=== PATIENT | female | born 1950 | race Caucasian/White ===

== ENCOUNTER → 2017-01-24 | Outpatient (RCR) | payer MEDICARE, MEDICAID ==
--- OUTSIDE RECORDS SUMMARY | 2016-10-26 10:00 | XMS REPORT | Continuity of Care Document ---
Author Author [facility] Organization [facility] Address Unknown Phone Unavailable Care Team Providers Care Clasp Machine Operator Name Role Phone Donna Tafoya PCP [phone] Source Comments Some departments are not documenting in the electronic medical record. If you do not see the information that you expected, contact Release of Information in the Health Information Management department at [phone] for further assistance in locating additional records.[facility] Active Allergies and Adverse Reactions Allergen Noted Date Severity Reactions Comments Benadryl Allergy 10/26/2011 Medium RASH, SEE COMMENTS Patient states benadryl Decongestant gives her a bloody nose Celebrex 10/19/2011 High SEE COMMENTS Passing blood in stool Lyrica 10/19/2011 Medium HEADACHE, NAUSEA AND drowsiness VOMITING, SEE COMMENTS Mobic 10/19/2011 Medium HEADACHE, HIVES, NAUSEA AND VOMITING Novocain 11/14/2011 NAUSEA AND VOMITING Sulfa (Sulfonamide 10/19/2011 Medium HIVES, NAUSEA AND Antibiotics) VOMITING Current Medications Prescription Sig. Disp. Refills Start End Date Status Date metoprolol XL (TOPROL XL) Take 100 mg by mouth Active 100 mg tablet daily. ascorbic acid (VITAMIN-C) Take 500 mg by mouth at Active 500 mg tablet bedtime daily. rivaroxaban (XARELTO) 20 Take 20 mg by mouth daily Active mg tab tablet with dinner. Calcium Citrate-Vitamin Take 1 Tab by mouth twice Active D3 (CITRACAL REGULAR) 250 daily. mg calcium- 200 unit tab vitamins, multiple tablet Take 1 Tab by mouth Active daily. ondansetron (ZOFRAN) 8 mg Take 8 mg by mouth every Active tablet 8 hours as needed for Nausea. furosemide (LASIX) 20 mg Take 1 Tab by mouth 30 Tab 5 05/22/20 Active tablet daily. 16 sodium chloride (SEA Apply 1-2 Sprays to each 12 05/22/20 Active MIST) 0.65 % nasal spray nostril as directed as 16 Needed. acetaminophen (TYLENOL) Take 2 Tabs by mouth 30 Tab 1 05/22/20 Active 325 mg tablet every 4 hours as needed 16 for Pain. Take temperature prior to taking and if temp is elevated, you need to call the BMT clinic first. pentamidine (NEBUPENT) Inhale 6 mL by mouth 0 05/22/20 Active 300 mg/6 mL nebulizer every 28 days. To be 16 solution administered in clinic Magnesium 250 mg tab Take 1 Tab by mouth twice 05/22/20 Active daily. Hold for loose 16 stools potassium chloride SR Take one tablet by mouth 30 Tab 1 05/22/20 Active (K-DUR) 20 mEq tablet daily with Lasix. 16 dapsone 100 mg tablet Take 1 Tab by mouth 90 Tab 3 07/01/20 Active daily. 16 acyclovir (ZOVIRAX) 800 Take 1 Tab by mouth twice 60 Tab 5 07/01/20 Active mg tablet daily. 16 Active Problems Problem Noted Date CHF (congestive heart failure) ([facility]) 05/22/2016 Hypomagnesemia 05/21/2016 Nocturnal leg cramps 05/21/2016 Hypokalemia 05/12/2016 Pancytopenia due to chemotherapy ([facility]) 05/12/2016 H/O stem cell transplant ([facility]) 05/09/2016 Overview: Transplant Information: Date of Transplant: 05/09/16 Preparative Regimen: BEAC Reduced or fully ablative: Full Disease: AITL Disease Status at Transplant: Rel1 sen Cytogenetic/FISH at DIAGNOSIS: none CMV: POS Cell Source: Peripheral, autologous, cryopreserved Consents/Studies: 8322, blood/chemo, storage, autologous, apheresis Coordinator: FRANCY WAGNER RN Nausea 05/09/2016 Abnormal echocardiogram 05/02/2016 Cardiomyopathy (HCC) 04/07/2016 CAD (coronary artery disease) 04/07/2016 Lymphedema of lower extremity 01/17/2014 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 CT scans showed diffuse LN enlargement, but the lagest LN described was 2.2 in diameter. 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 T-cell receptor rearrangement study was negative for clonal proliferation with even though does not fully exclude the diagnosis, it does not fully support i either especially given the atypic presentation. Further testing in needed. The patient has normal hematologic parameters, organ functions and is free of B symptoms, otherwise. Workup showed negative Hepatitis and HIV screen, negative HHV1, L ast Assessment & Plan: Acute parotitis 10/26/2011 Hyponatremia 10/19/2011 Dizziness 10/19/2011 DVT, lower extremity (HCC) 10/19/2011 Overview: The patient suffered bilateral unprovoked DVTs in bilateral LE. This is in the context of her recent diagnosis of lymphoma. penitentiary anticoagulation is prudent . Last Assessment & Plan: Continue coumadin therapy for a target INR of 2-3. Most Recent Encounters Date Type Specialty Providers Description 10/18/2016 Telephone Oncology Jenny Torres BMT Follow-up - 180 day LTFU 08/23/2016 Orders Only Cardiology Steph Rdz RN 08/11/2016 Telephone Oncology Jenny Be BMT Follow-up - 100 day Social History Tobacco Use Types Packs/Day Years Used Date Former Smoker Cigarettes 0.25 10 Quit: 02/02/2016 Smokeless Tobacco: Never Used Tobacco Cessation: Counseling Given: Yes Comments: pt smokes 1 cigarette/ daily Alcohol Use Drinks/Week oz/Week Comments No Last Filed Vital Signs Vital Sign Reading Time Taken Blood Pressure 124/93 07/01/2016 1:37 PM CDT Pulse 77 07/01/2016 1:37 PM CDT Temperature 36.8 C (98.3 F) 07/01/2016 1:37 PM CDT Respiratory Rate 16 07/01/2016 1:37 PM CDT Height 1.702 m (5' 7.01") 07/01/2016 1:37 PM CDT Weight 71 kg (156 lb 8.4 oz) 07/01/2016 1:37 PM CDT Body Mass Index 24.51 07/01/2016 1:37 PM CDT Oxygen Saturation 94% 07/01/2016 1:37 PM CDT Plan of Care Health Maintenance Due Date Last Done Comments Physical (Comprehensive) 1957 Exam Pertussis Vaccine 1961 Tetanus Vaccine 1967 Colorectal Cancer 2000 Screening Shingles Vaccine 2010 Osteoporosis Screening 2015 Prevnar/Pneumovax (#1) 2015 Influenza Vaccine 07/28/2016 Breast Cancer Screening 07/28/2017 07/28/2015 Hepatitis C Screening Completed 10/24/2011, 10/21/2011, 10/21/2011 Results from Last 3 Months Not on file
[2016-10-26 10:05] LABS: BASOPHILS % (AUTO) 1 % (0-10); EOSINOPHILS # (AUTO) 0.3 10^3/uL (0.0-0.3); EOSINOPHILS % (AUTO) 5 % (0-10); LYMPHOCYTES # (AUTO) 1.3 X 10^3 (1.0-4.0); LYMPHOCYTES % (AUTO) 23 % (12-44); MEAN CORPUSCULAR HEMOGLOBIN 32 PG (25-34); MEAN CORPUSCULAR HGB CONC 33 G/DL (32-36); MEAN CORPUSCULAR VOLUME 97 FL (80-99); MONOCYTES # (AUTO) 0.7 X 10^3 (0.0-1.0); MONOCYTES % (AUTO) 13 % (0-12); NEUTROPHILS # (AUTO) 3.3 X 10^3 (1.8-7.8); NEUTROPHILS % (AUTO) 59 % (42-75); PLATELET COUNT 350 10^3/uL (130-400); RED BLOOD COUNT 3.58 10^6/uL (4.35-5.85); RED CELL DISTRIBUTION WIDTH 13.7 % (10.0-14.5); WHITE BLOOD COUNT 5.6 10^3/uL (4.3-11.0)
[2016-10-26 10:48] LABS: ERYTHROCYTE SEDIMENTATION RATE 90 MM/HR (0-30)
[2016-10-26 10:55] LABS: ALANINE AMINOTRANSFERASE 6 U/L (0-55); ANION GAP 10 MMOL/L (5-14); ASPARTATE AMINO TRANSFERASE 19 U/L (5-34); BILIRUBIN,TOTAL 0.4 MG/DL (0.1-1.0); BLOOD UREA NITROGEN 15 MG/DL (7-18); BUN/CREATININE RATIO 18; CALCIUM 9.6 MG/DL (8.5-10.1); CARBON DIOXIDE 21 MMOL/L (21-32); CHLORIDE 104 MMOL/L (98-107); CREATININE SERUM 0.83 MG/DL (0.60-1.30); GFR ESTIMATED > 60; GLUCOSE 104 MG/DL (70-105); POTASSIUM 4.5 MMOL/L (3.6-5.0); SODIUM 135 MMOL/L (135-145); TOTAL PROTEIN 7.7 G/DL (6.4-8.2)
[2017-01-19 11:03] LABS: BASOPHILS % (AUTO) 1 % (0-10); EOSINOPHILS # (AUTO) 0.2 10^3/uL (0.0-0.3); EOSINOPHILS % (AUTO) 4 % (0-10); LYMPHOCYTES # (AUTO) 1.4 X 10^3 (1.0-4.0); LYMPHOCYTES % (AUTO) 28 % (12-44); MEAN CORPUSCULAR HEMOGLOBIN 32 PG (25-34); MEAN CORPUSCULAR HGB CONC 34 G/DL (32-36); MEAN CORPUSCULAR VOLUME 94 FL (80-99); MEAN PLATELET VOLUME 8.7 FL (7.4-10.4); MONOCYTES # (AUTO) 0.4 X 10^3 (0.0-1.0); MONOCYTES % (AUTO) 9 % (0-12); NEUTROPHILS # (AUTO) 2.8 X 10^3 (1.8-7.8); NEUTROPHILS % (AUTO) 59 % (42-75); PLATELET COUNT 282 10^3/uL (130-400); RED BLOOD COUNT 4.25 10^6/uL (4.35-5.85); RED CELL DISTRIBUTION WIDTH 14.6 % (10.0-14.5); WHITE BLOOD COUNT 4.8 10^3/uL (4.3-11.0)
[2017-01-19 11:08] LABS: PEP REPORT SEE PATH REPORT
[2017-01-19 11:31] LABS: ALANINE AMINOTRANSFERASE 9 U/L (0-55); ALBUMIN 3.8 G/DL (3.2-4.5); ANION GAP 9 MMOL/L (5-14); ASPARTATE AMINO TRANSFERASE 22 U/L (5-34); BILIRUBIN,TOTAL 0.5 MG/DL (0.1-1.0); BLOOD UREA NITROGEN 11 MG/DL (7-18); BUN/CREATININE RATIO 13; CALCIUM 9.6 MG/DL (8.5-10.1); CARBON DIOXIDE 24 MMOL/L (21-32); CHLORIDE 103 MMOL/L (98-107); CREATININE SERUM 0.83 MG/DL (0.60-1.30); GFR ESTIMATED > 60; GLUCOSE 95 MG/DL (70-105); POTASSIUM 4.2 MMOL/L (3.6-5.0); SODIUM 136 MMOL/L (135-145); TOTAL PROTEIN 7.8 G/DL (6.4-8.2)
[2017-01-19 11:44] LABS: ERYTHROCYTE SEDIMENTATION RATE 56 MM/HR (0-30)
[2017-01-20 05:14] LABS: IMMUNOGLOBULIN IGA 297 mg/dL (71-263); IMMUNOGLOBULIN IGG 1490 mg/dL (672-1680); LIGHT CHAIN KAPPA SERUM QUANT 40.56 mg/L (3.30-19.40); LIGHT CHAIN LAMBDA SERUM QUANT 33.36 mg/L (5.71-26.30)
[2017-01-20 08:34] LABS: IMMUNOGLOBULIN IGM 370 mg/dL (47-209)
[2017-01-23 13:17] LABS: CLIN PATHOLOGY REPORT FOOTNOTE; SERUM PROTEIN ELEC DETAIL L-17-0002507
[~2017-01-24] MED LIST: AMLO5TAB2 PO; ASCO-262 PO; CALC1TAB38 PO; GABA600T2 PO; HAWT500C PO; HYDR-3454 PO; HYDR-3812 PO; LISI10TA PO; MAGN250T27 PO; MAGN400C PO; METO100T2 PO; MULT-608 PO; Magnesium PO; OMEP20CA12 PO; OXYC-12 PO; RIVA20TA4 PO; TRAM50TA2 PO; WRF5T PO; [UNRECOGNIZED DRUG - CODE] PO; [UNRECOGNIZED DRUG - OTHER] PO; [UNRECOGNIZED DRUG - OTHER] PO; [UNRECOGNIZED DRUG - OTHER] PO; [UNRECOGNIZED DRUG - OTHER] PO
== END | disposition home or self-care (01) ==
LOC: ONC 10-26 09:57
PROVIDERS: ATTEND Internal Medicine Hematology & Oncology
DX: C84.05 Mycosis fungoides, lymph nodes of inguinal region and lower limb (principal); D68.59 Other primary thrombophilia; E88.09 Other disorders of plasma-protein metabolism, not elsewhere classified; I82.509 Chronic embolism and thrombosis of unspecified deep veins of unspecified lower extremity; Z87.01 Personal history of pneumonia (recurrent); Z79.899 Other long term (current) drug therapy; Z79.01 Long term (current) use of anticoagulants
CPT/HCPCS: 36415; 80053; 82784; 83883; 84155; 84165; 85025; 85652; 86038; 86039; 99213

== ENCOUNTER 2017-04-25 10:56 | Outpatient (RCR) | payer MEDICARE, MEDICAID ==
[2017-04-25 11:19] LABS: BASOPHILS % (AUTO) 1 % (0-10); EOSINOPHILS # (AUTO) 0.4 10^3/uL (0.0-0.3); EOSINOPHILS % (AUTO) 7 % (0-10); LYMPHOCYTES # (AUTO) 1.3 X 10^3 (1.0-4.0); LYMPHOCYTES % (AUTO) 26 % (12-44); MEAN CORPUSCULAR HEMOGLOBIN 33 PG (25-34); MEAN CORPUSCULAR HGB CONC 34 G/DL (32-36); MEAN CORPUSCULAR VOLUME 96 FL (80-99); MEAN PLATELET VOLUME 8.6 FL (7.4-10.4); MONOCYTES # (AUTO) 0.5 X 10^3 (0.0-1.0); MONOCYTES % (AUTO) 10 % (0-12); NEUTROPHILS # (AUTO) 2.9 X 10^3 (1.8-7.8); NEUTROPHILS % (AUTO) 56 % (42-75); PLATELET COUNT 298 10^3/uL (130-400); RED BLOOD COUNT 4.02 10^6/uL (4.35-5.85); RED CELL DISTRIBUTION WIDTH 14.4 % (10.0-14.5); WHITE BLOOD COUNT 5.2 10^3/uL (4.3-11.0)
[2017-04-25 11:46] LABS: PEP REPORT SEE PATH REPORT
[2017-04-25 12:09] LABS: ALANINE AMINOTRANSFERASE 8 U/L (0-55); ALBUMIN 3.9 G/DL (3.2-4.5); ANION GAP 9 MMOL/L (5-14); ASPARTATE AMINO TRANSFERASE 20 U/L (5-34); BILIRUBIN,TOTAL 0.5 MG/DL (0.1-1.0); BLOOD UREA NITROGEN 11 MG/DL (7-18); BUN/CREATININE RATIO 14; CALCIUM 9.8 MG/DL (8.5-10.1); CARBON DIOXIDE 23 MMOL/L (21-32); CHLORIDE 104 MMOL/L (98-107); CREATININE SERUM 0.79 MG/DL (0.60-1.30); GFR ESTIMATED > 60; GLUCOSE 90 MG/DL (70-105); MAGNESIUM 2.1 MG/DL (1.8-2.4); POTASSIUM 4.3 MMOL/L (3.6-5.0); SODIUM 136 MMOL/L (135-145); TOTAL PROTEIN 7.9 G/DL (6.4-8.2)
[2017-04-25 12:33] LABS: ERYTHROCYTE SEDIMENTATION RATE 43 MM/HR (0-30)
[2017-04-26 04:26] LABS: IMMUNOGLOBULIN IGA 267 mg/dL (71-263); IMMUNOGLOBULIN IGG 1425 mg/dL (672-1680); LIGHT CHAIN KAPPA SERUM QUANT 34.89 mg/L (3.30-19.40); LIGHT CHAIN LAMBDA SERUM QUANT 34.82 mg/L (5.71-26.30)
[2017-04-26 07:05] LABS: IMMUNOGLOBULIN IGM 374 mg/dL (47-209)
[2017-04-27 15:19] LABS: CLIN PATHOLOGY REPORT FOOTNOTE; SERUM PROTEIN ELEC DETAIL L-17-0007003
== END 2017-07-24 | disposition home or self-care (01) ==
LOC: ONC 10:56
PROVIDERS: ATTEND Internal Medicine Hematology & Oncology
DX: C84.05 Mycosis fungoides, lymph nodes of inguinal region and lower limb (principal); D68.59 Other primary thrombophilia; E88.09 Other disorders of plasma-protein metabolism, not elsewhere classified; I82.509 Chronic embolism and thrombosis of unspecified deep veins of unspecified lower extremity; Z87.01 Personal history of pneumonia (recurrent); Z79.899 Other long term (current) drug therapy; Z79.01 Long term (current) use of anticoagulants
CPT/HCPCS: 36415; 80053; 82232; 82784; 83735; 83883; 84155; 84165; 85025; 85652; 99213

== ENCOUNTER → 2019-04-15 | Outpatient (CLI) | payer MEDICARE, MEDICAID ==
[~2019-04-15] MED LIST changes: +ACHD5005 PO; +CYAN10006 PO; +GOJI BERRY PO; -HYDR-3454 PO; +HYDR-3455 PO; -HYDR-3812 PO
== END ==
LOC: CARD 10:42
PROVIDERS: ATTEND Internal Medicine Cardiovascular Disease
DX: R06.09 Other forms of dyspnea (principal); I10 Essential (primary) hypertension; I08.1 Rheumatic disorders of both mitral and tricuspid valves
CPT/HCPCS: 93306

== ENCOUNTER → 2019-04-17 | Outpatient (CLI) | payer MEDICARE, MEDICAID ==
[~2019-04-17] MED LIST changes: +CATHETER FLUSH 10 ML SYR IV PRN; +REGADENOSON 0.4 MG/5 ML SYR (LEXISCAN) IV ONE
[2019-04-17 09:28] VITALS: BP 124/78
[2019-04-17 09:33] VITALS: BP 118/70
--- NOTE | 2019-04-17 19:55 | STRESS TEST ---
DATE OF SERVICE: 04/17/2019 LEXISCAN MYOVIEW STRESS TEST REPORT REFERRING PHYSICIAN: Donna Tafoya MD Baseline heart rate is 75. Baseline blood pressure 124/78. Baseline EKG is sinus rhythm with no ischemic changes. In summary, the patient was injected with 10.85 mCi of technetium-99 Myoview and the resting images were obtained. Then, the patient received 0.4 mg of Lexiscan followed by 30.1 mCi of technetium-99 Myoview. Throughout the test, there were no EKG changes. The resting and stress images were reviewed and compared in the short axis, horizontal long axis, and vertical long axis views. Review of the images showed reversible ischemia involving the anterior wall, anteroapical segment, anterolateral wall. SSS is 15, SDS 4, TID value 0.97. On the gated images, the left ventricle is dilated with end diastolic volume 198 mL, end systolic volume 156 mL. Diffuse left ventricular hypokinesia with calculated ejection fraction 21%. CONCLUSIONS: 1. The patient tolerated Lexiscan well. 2. Reversible ischemia involving the whole anterior wall, anterior apex, anterolateral wall. 3. Dilated left ventricle with diffuse left ventricular hypokinesia, calculated ejection fraction 21%. Job ID: [id number] DocumentID: [id number] Dictated Date: 04/17/2019 16:21:35 Catering Administrative Assistant Date: 04/17/2019 19:54:18 Dictated By: CHACE YOUNG MD
== END ==
LOC: CARD 07:25
PROVIDERS: ATTEND Internal Medicine Cardiovascular Disease
DX: I11.0 Hypertensive heart disease with heart failure (principal); R06.09 Other forms of dyspnea; I34.0 Nonrheumatic mitral (valve) insufficiency
CPT/HCPCS: 78452; 93017

== ENCOUNTER 2019-05-01 15:55 | Outpatient (RCR) | payer MEDICARE, MEDICAID ==
[2019-04-29 11:20] LABS: BASOPHILS % (AUTO) 0 % (0-10); EOSINOPHILS # (AUTO) 0.5 10^3/uL (0.0-0.3); EOSINOPHILS % (AUTO) 6 % (0-10); HEMATOCRIT 33 % (35-52); HEMOGLOBIN 10.9 G/DL (11.5-16.0); LYMPHOCYTES # (AUTO) 1.3 X 10^3 (1.0-4.0); LYMPHOCYTES % (AUTO) 16 % (12-44); MEAN CORPUSCULAR HEMOGLOBIN 32 PG (25-34); MEAN CORPUSCULAR HGB CONC 33 G/DL (32-36); MEAN CORPUSCULAR VOLUME 97 FL (80-99); MEAN PLATELET VOLUME 9.2 FL (7.4-10.4); MONOCYTES # (AUTO) 0.7 X 10^3 (0.0-1.0); MONOCYTES % (AUTO) 9 % (0-12); NEUTROPHILS # (AUTO) 5.3 X 10^3 (1.8-7.8); NEUTROPHILS % (AUTO) 68 % (42-75); PLATELET COUNT 409 10^3/uL (130-400); RED CELL DISTRIBUTION WIDTH 14.5 % (10.0-14.5); WHITE BLOOD COUNT 7.8 10^3/uL (4.3-11.0)
[2019-04-29 11:39] LABS: ERYTHROCYTE SEDIMENTATION RATE 110 MM/HR (0-30)
[2019-04-29 11:46] LABS: BUN/CREATININE RATIO 16; CALCIUM 9.5 MG/DL (8.5-10.1); CARBON DIOXIDE 21 MMOL/L (21-32); CHLORIDE 104 MMOL/L (98-107); GFR ESTIMATED > 60; GLUCOSE 101 MG/DL (70-105); POTASSIUM 3.9 MMOL/L (3.6-5.0); SODIUM 133 MMOL/L (135-145)
[2019-04-29 11:47] LABS: ALANINE AMINOTRANSFERASE 7 U/L (0-55); ALBUMIN 3.8 GM/DL (3.2-4.5); ALKALINE PHOSPHATASE 68 U/L (40-136); TOTAL PROTEIN 7.8 GM/DL (6.4-8.2)
[~2019-05-01 15:55] MED LIST changes: +APIX5TAB4 PO; +ASPI-983 PO; -CATHETER FLUSH 10 ML SYR IV PRN; +CYAN-41 PO; -CYAN10006 PO; +FURO-125 PO; +LOSA25TA41 PO; +METO-387 PO; -REGADENOSON 0.4 MG/5 ML SYR (LEXISCAN) IV ONE
== END 2019-07-28 | disposition home or self-care (01) ==
LOC: ONC 15:55
PROVIDERS: ATTEND Internal Medicine Hematology & Oncology
DX: C84.48 Peripheral T-cell lymphoma, not elsewhere classified, lymph nodes of multiple sites (principal); R76.8 Other specified abnormal immunological findings in serum; I25.10 Atherosclerotic heart disease of native coronary artery without angina pectoris; I11.0 Hypertensive heart disease with heart failure; I50.22 Chronic systolic (congestive) heart failure; I08.1 Rheumatic disorders of both mitral and tricuspid valves; I82.509 Chronic embolism and thrombosis of unspecified deep veins of unspecified lower extremity; F17.210 Nicotine dependence, cigarettes, uncomplicated; Z94.84 Stem cells transplant status; Z87.01 Personal history of pneumonia (recurrent); Z79.899 Other long term (current) drug therapy; Z79.01 Long term (current) use of anticoagulants
CPT/HCPCS: 36415; 80053; 82784; 83615; 85025; 85652; 99213

== ENCOUNTER → 2019-07-12 | Outpatient (CLI) | payer MEDICARE, MEDICAID ==
--- NOTE | 2019-07-12 17:52 | Diagnostic Imaging Report ---
EXAMINATION: PA and lateral chest at 1131 hours. INDICATION: Pneumonia. FINDINGS: The cardiomegaly noted on the prior exam of 07/16/2015 is again evident and not significantly changed. The previous study did show small bilateral pleural effusions and minimal bibasilar atelectasis. On this exam both lung bases do seem better aerated. The lungs are otherwise generally clear. There are a few calcified granulomas in both lungs but there is no sign of failure, pneumonia or for a pleural effusion. The mediastinum is not widened. The osseous structures are intact. Surgical clips are again seen overlying each axilla. The right-sided Port-A-Cath noted on the prior exam has been removed. IMPRESSION: 1. There is borderline cardiomegaly but there is no evidence for an acute cardiopulmonary abnormality. 2. The right-sided Port-A-Cath seen previously has been removed. Dictated by: Dictated on workstation # [id number]
== END ==
LOC: RAD 11:17
PROVIDERS: ATTEND Physician Assistant
DX: I11.0 Hypertensive heart disease with heart failure (principal); I50.22 Chronic systolic (congestive) heart failure; J18.9 Pneumonia, unspecified organism; I25.10 Atherosclerotic heart disease of native coronary artery without angina pectoris
CPT/HCPCS: 71046

== ENCOUNTER → 2019-07-22 | Outpatient (CLI) | payer MEDICARE, MEDICAID | LOC: CARD 09:36 | PROVIDERS: ATTEND Physician Assistant | DX: I34.0 Nonrheumatic mitral (valve) insufficiency (principal); I25.10 Atherosclerotic heart disease of native coronary artery without angina pectoris; I11.0 Hypertensive heart disease with heart failure; I50.22 Chronic systolic (congestive) heart failure | CPT/HCPCS: 93306 ==

== ENCOUNTER → 2020-11-30 | Outpatient (CLI) | payer OTHER, MEDICARE, MEDICAID ==
[~2020-11-30] MED LIST changes: +ASPI-1238 PO; -ASPI-983 PO; -METO-387 PO; +MTP25TSR PO; -TRAM50TA2 PO; +TRM50T PO
== END ==
LOC: GIR 10:21
PROVIDERS: ATTEND Nurse Practitioner Family
DX: Z20.828 Contact with and (suspected) exposure to other viral communicable diseases (principal)
CPT/HCPCS: 87635

== ENCOUNTER → 2023-01-11 | Outpatient (CLI) | payer OTHER, MEDICAID ==
--- NOTE | 2023-01-05 09:34 | HISTORY AND PHYSICAL ---
DATE OF SERVICE: 01/11/2023 This will be for a Radiology of unknown date as of yet. ATTENDING PRIMARY CARE PHYSICIAN: Dr. Papo Dominique. HISTORY OF PRESENT ILLNESS: The patient is a 72-year-old female with a multitude of different problems. Her past medical history includes hypertension, cardiomyopathy and does have a defibrillator and pacer. She states that her chief complaint at this point is leg weakness on an intermittent basis. She also does have pain in the right flank region. She did undergo previous CT scan, which did show a number of different issues. She was found to have a left femoral hernia, bilateral lumbar hernias, a large hiatal hernia. She states that she may have some left lower extremity weakness; however, states that this is more on the right. It was explained to the patient that she may need a high resolution CT scan to look at the potential of recurrent lumbar degenerative joint disease as well as the possibility of bilateral femoral hernias causing impingement on the nerves. PAST MEDICAL HISTORY Hypertension; cardiomyopathy; hiatal hernia; diverticulosis; left femoral hernia; bilateral lumbar hernia with the right being 7.8 x 6.3 cm, left lumbar hernia, 5.9 x 5.3 cm; non-Hodgkin's lymphoma, T-cell lymphoma diagnosed in 2012; left upper extremity DVT; urinary retention; bilateral lower extremity DVT; rectal prolapse. PAST SURGICAL HISTORY: Three C-sections, total hysterectomy, open cholecystectomy in 1976, L4-L5 ORIF right thoracotomy and wedge resection for a benign lesion, right open rotator cuff repair, left upper extremity deep vein thrombectomy, pacer and defibrillator placement . ALLERGIES: MOBIC, CELEBREX, LYRICA, SULFA, AND LASIX. MEDICATIONS: Senna b.i.d., lorazepam 0.5 mg t.i.d., Zofran 8 mg p.r.n., amiodarone 200 mg a.m. and 600 mg p.m., Pyridium 100 mg daily, oxybutynin daily, albuterol inhaler p.r.n., carvedilol 3.125 mg daily, Xarelto 20 mg daily, potassium 20 mEq daily, bumetanide 1 mg daily, sertraline 25 mg daily, esomeprazole 40 mg daily, metaxalone 5 mg daily, lisinopril 2.5 mg daily. SOCIAL HISTORY: Previous smoker, quit, ____ 10 pack years. Negative alcohol. FAMILY HISTORY: Mother, myocardial infarction and stroke at age 75. VITAL SIGNS: Blood pressure 120/80, current weight 159.2 pounds at 5 feet 4 inches. REVIEW OF SYSTEMS: Well-nourished female, currently in no acute distress. She is not experiencing any shortness of breath or difficulty breathing. No chest pain, palpitations, diaphoresis. No nausea, vomiting with intermittent episodes of constipation, no red blood per rectum, no dark tarry stools. No fever, chills, no recent inadvertent weight loss. All other review of systems negative. PHYSICAL EXAMINATION: CHEST: Few Scattered rales bilaterally. HEART: Regular, no murmurs. EXTREMITIES: No lower extremity edema. Negative Homans sign. HEENT: No scleral icterus. No cervical lymphadenopathy. ABDOMEN: Soft. There is some mild discomfort in bilateral inguinal regions upon deep palpation. She also does have bilateral lumbar hernias, which are tender to palpation with right greater than the left. . SKIN: Warm and dry. ASSESSMENT AND PLAN: A 72-year-old female with multiple issues including bilateral leg weakness with a right greater than the left with findings of left femoral hernia. She was also found to have bilateral lumbar hernias with the right being larger than the left and this is painful to palpation. The patient also does have a large hiatal hernia; however, states that this is rarely symptomatic. She also has issues with rectal prolapse; however, when she does follow a high fiber diet and has soft stools, this does not become much of an issue. At this time, due to her extensive past medical history, we will be conservative with her surgical treatment modalities. We will repeat a CT scan of the abdomen and pelvis for better resolution with a [address] scanner in hopes of identifying a potential bilateral femoral hernias versus recurrent degenerative joint disease of the lumbar vertebrae. We will also reevaluate the lumbar hernias and proceed with our treatment modalities based on the CT scan. Job ID: [id number] DocumentID: [id number] Dictated Date: 01/03/2023 16:31:01 Director Of Federal Sales Date: 01/03/2023 17:28:00 Dictated By: MARCY KWONG MD [facility]
[~2023-01-11] MED LIST changes: +IOHEXOL 350 MG/ML 100 ML (OMNIPAQUE 350) VIAL IV ONE; +NS 100 ML (IVPB) BAG IV ONE
[2023-01-11 11:17] LABS: CREATININE SERUM 1.14 MG/DL (0.60-1.30)
--- NOTE | 2023-01-11 13:27 | Diagnostic Imaging Report ---
PROCEDURE: CT abdomen and pelvis with contrast. TECHNIQUE: Multiple contiguous axial images were obtained through the abdomen and pelvis after administration of intravenous contrast. Auto Exposure Controls were utilized during the CT exam to meet ALARA standards for radiation dose reduction. All CT scans use one or more of the following dose optimizing techniques: automated exposure control, MA and/or KvP adjustment based on patient size and exam type or iterative reconstruction. INDICATION: Right-sided flank pain and swelling. Correlation is made prior CT from 05/19/2015. FINDINGS: Imaging through lung bases demonstrates heart to be enlarged. Lung bases are clear. The liver is enlarged at 19 cm. No liver mass is detected. Gallbladder is surgically absent. There is no biliary ductal dilatation. Pancreas unremarkable. The spleen appears decreased in size when compared with prior CT from 2015. There is a lobulated contour to the spleen with some internal calcifications. No adrenal mass is identified. Kidneys are without calculi or hydronephrosis. There is some cortical scarring involving the left kidney. Aorta is heavily calcified but nonaneurysmal. There is a filter within the inferior vena cava. Extensive central retroperitoneal lymphadenopathy noted on prior study is no longer visualized. No definite pelvic lymphadenopathy is identified. Bowel loops are normal caliber. There is no obstruction. There is no ascites. The bladder is unremarkable. Uterus appears to be surgically absent. Postop changes of posterior fusion is noted at the L4-L5 level. IMPRESSION: 1. Cardiomegaly. 2. Resolution of previously noted abdominal and pelvic ascites when compared with prior CT dating back to 2014. No acute feature in the abdomen or pelvis is identified. Dictated by: Dictated on workstation # [id number]
== END ==
LOC: RAD 10:32
PROVIDERS: ATTEND Surgery
DX: K41.90 Unilateral femoral hernia, without obstruction or gangrene, not specified as recurrent (principal); M51.26 Other intervertebral disc displacement, lumbar region; K44.9 Diaphragmatic hernia without obstruction or gangrene; I51.7 Cardiomegaly
CPT/HCPCS: 36415; 74177; 82565; 84520

== ENCOUNTER → 2023-01-31 | Outpatient (CLI) | payer OTHER, MEDICAID ==
[~2023-01-31] MED LIST changes: -IOHEXOL 350 MG/ML 100 ML (OMNIPAQUE 350) VIAL IV ONE; -NS 100 ML (IVPB) BAG IV ONE
== END ==
LOC: RAD 09:30
DX: Z53.9 Procedure and treatment not carried out, unspecified reason (principal)

== ENCOUNTER → 2023-03-08 | Outpatient (CLI) | payer MEDICARE, MEDICAID | LOC: ORTHO 08:41 | PROVIDERS: ATTEND Orthopaedic Surgery | DX: S42.032A Displaced fracture of lateral end of left clavicle, initial encounter for closed fracture (principal); X58.XXXA Exposure to other specified factors, initial encounter | CPT/HCPCS: 99203 ==

== ENCOUNTER → 2023-03-22 | Outpatient (CLI) | payer MEDICARE, MEDICAID ==
--- NOTE | 2023-03-22 10:30 | Diagnostic Imaging Report ---
INDICATION: Follow-up left clavicle fracture. Time of Exam: 10:02 AM Comparison is made with outside radiograph of the left shoulder performed on 02/24/2023. Distal clavicle fracture is again noted. The distal fracture fragment is displaced cephalad approximately one half the width of the shaft. Glenohumeral alignment is normal. No other fractures are seen. IMPRESSION: Mildly displaced distal clavicle fracture. Dictated by: Dictated on workstation # [id number]
== END ==
LOC: ORTHO 09:45
PROVIDERS: ATTEND Orthopaedic Surgery
DX: S42.032D Displaced fracture of lateral end of left clavicle, subsequent encounter for fracture with routine healing (principal); X58.XXXD Exposure to other specified factors, subsequent encounter
CPT/HCPCS: 73000; 99213

== ENCOUNTER → 2023-04-20 | Outpatient (CLI) | payer MEDICARE, MEDICAID ==
--- NOTE | 2023-04-20 10:48 | Diagnostic Imaging Report ---
INDICATION: Left clavicle fracture, followup. TECHNIQUE/COMPARISON: AP and angled views of the left clavicle were obtained and compared to 03/22/2023. FINDINGS: The fracture of the distal clavicle is unchanged in appearance and alignment compared to the prior study. There is some mild callus formation. IMPRESSION: Unchanged appearance of the left distal clavicle fracture. Dictated by: Dictated on workstation # [id number]
== END ==
LOC: ORTHO 08:46
PROVIDERS: ATTEND Orthopaedic Surgery
DX: S42.032D Displaced fracture of lateral end of left clavicle, subsequent encounter for fracture with routine healing (principal); X58.XXXD Exposure to other specified factors, subsequent encounter
CPT/HCPCS: 73000; 99213

== ENCOUNTER → 2023-06-01 | Outpatient (CLI) | payer MEDICARE, MEDICAID ==
--- NOTE | 2023-06-01 09:49 | Diagnostic Imaging Report ---
INDICATION: Left clavicle fracture, follow-up. AP and angled views left clavicle are obtained and compared with 04/20/2023. FINDINGS: Fracture distal aspect of the left clavicle is unchanged in alignment and appearance compared to the prior study. There is persistent lucency of the fracture site. Questionable small loose body in the AC joint. IMPRESSION: Unchanged appearance of left distal clavicle fracture compared to 04/20/2023 with no new abnormality. Dictated by: Dictated on workstation # [id number]
== END ==
LOC: ORTHO 08:55
PROVIDERS: ATTEND Orthopaedic Surgery
DX: S42.032D Displaced fracture of lateral end of left clavicle, subsequent encounter for fracture with routine healing (principal); X58.XXXD Exposure to other specified factors, subsequent encounter
CPT/HCPCS: 73000; 99213